=== PATIENT | male | born 1960 | race Caucasian/White ===

== ENCOUNTER → 2021-07-01 | Outpatient (CLI) | payer OTHER ==
[~2021-07-01] MED LIST: CONTRAST GIVEN. MC PRN; IOHEXOL 300 MG/ML 100ML VIAL. IV ONE
--- NOTE | 2021-07-01 15:37 | KCIC ---
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 Comparison: None available Technique: Helical CT of the abdomen and pelvis performed after the administration of 100 mL Omnipaq ue 300 intravenous contrast and timed for angiographic phase. Coronal and sagittal MIP reconstruction s were obtained. One or more of the following individualized dose reduction techniques were utilized for this examinat ion: 1. Automated exposure control 2. Adjustment of the mA and/or kV according to patient size 3. Use of iterative reconstruction technique. Findings: Vasculature: The abdominal aorta is normal in caliber. Mild calcified atherosclerosis in the infraren al abdominal aorta. No aortic dissection. The celiac artery origin is widely patent. There is mild aneurysmal dilatation of the celiac artery 1 .7 mm distal to the origin and just before the trifurcation, measuring 1.3 x 1.2 cm in diameter, over a 2.2 cm in length (image 77 sagittal series). There is a small intimal flap within the aneurysm. Th ere are calcifications in the celiac artery. Celiac artery branches are normal in caliber and patent. There is focal enlargement of the superior mesenteric artery measuring 1.0 x 0.8 cm over a 1.8 cm tank gth (image 79 sagittal series). This is about 5 cm distal to the origin. This is either a saccular an eurysm or a fusiform aneurysm with a a short intimal flap. Bilateral renal and inferior mesenteric arteries are normal in caliber and patent. The common iliac arteries are mildly enlarged measuring 1.9 cm in diameter each. Mild scattered calci fications in the iliac arteries. Common, internal, and external iliac arteries are patent. Other: Lung bases are clear. Heart is normal in size. The liver, gallbladder, pancreas, spleen, and a drenal glands are normal. There is a simple left renal cyst measuring 1.5 cm. There is a 2 cm hyperde nse exophytic lesion in the right kidney, likely a hemorrhagic cyst. No hydronephrosis. Ureters and b ladder are normal. Prostate gland is normal. Small hiatal hernia. No small bowel obstruction. The col on and appendix are normal. No free fluid or free air. No lymphadenopathy. No acute osseous abnormali ty. IMPRESSION: 1. 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 2. 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 This is either a saccular aneurysm or has a sm all intimal flap. 3. Mildly enlarged common iliac arteries measuring 1.9 cm in diameter each. 4. 2 cm hyperdense exophytic right renal lesion, likely hemorrhagic cyst. Ultrasound could be obtaine d to confirm. Electronically signed by: Mag Hartmann MD (07/01/2021 3:34 PM) [id number]
== END ==
LOC: KCIC CT 08:29
PROVIDERS: ATTEND Internal Medicine
DX: I72.3 Aneurysm of iliac artery (principal); I72.8 Aneurysm of other specified arteries; N28.89 Other specified disorders of kidney and ureter; I70.0 Atherosclerosis of aorta; K44.9 Diaphragmatic hernia without obstruction or gangrene
CPT/HCPCS: 74174; Q9967